=== PATIENT | female | born 1975 | race American Indian/Alaskan Native ===

== ENCOUNTER 2019-07-19 09:19 | Inpatient (IN) | payer OTHER ==
[2019-07-19] MEDS ORDERED: dexAMETHasone 20 MG/5 ML VIAL IM ONE (10:25)
[2019-07-19] MEDS ORDERED: ALBUTEROL 2.5 MG/3 ML NEBU IH ONE (10:25)
[2019-07-19] MEDS ORDERED: IPRATROPIUM 0.02% NEBU 2.5 ML IH ONE (10:25)
--- NOTE | 2019-07-19 10:42 | XRay Report ---
CHEST 2 VIEWS INDICATION / CLINICAL INFORMATION: Cough. Upper respiratory infection for 2 days. COMPARISON: 2 views of the chest from 03/02/2013. FINDINGS: SUPPORT DEVICES: None. HEART / MEDIASTINUM: No significant abnormality. LUNGS / PLEURA: No significant pulmonary or pleural abnormality. No pneumothorax. ADDITIONAL FINDINGS: No significant additional findings. IMPRESSION: No acute abnormality of the chest. Signer Name: Smith Martinez MD Signed: 07/19/2019 10:38 AM Workstation Name: [id number]
--- NOTE | 2019-07-19 10:54 | Emergency Department Report ---
Upper Respiratory HPI - HPI Chief Complaint: Upper Respiratory Infection Stated Complaint: KINSEY Time Seen by Provider: 07/19/19 09:42 Duration: 2 Days URI Symptoms: Rhinorrhea: Yes, Sore Throat: No, Ear Pain: No, Cough: Yes, Shortness of Breath: No, Sick Contacts: No, Unable to Take Fluids: No, Urine Output Abnormal: No, Listless Behavior: No Other History: This is a 43-year-old female nontoxic, well nourished in appearance, no acute signs of distress presents to the ED with c/o of productive cough, rhinorrhea, nasal congestion x2 days. Patient describes productive cough as yellow mucus production. Patient agrees to sick contact with cousin which has the flu. Patient denies any recent travels, long car, recent hospital stays. Patient denies any calf pain or calf tenderness. Patient denies any chest pain, short of breath, fever, chills, nausea, vomiting, hemoptysis, numbness, tingling, headache or stiff neck. Patient denies any allergies or significant past medical history. - Home Meds and Allergies Home Medications: Previous Rx's Medication Instructions Recorded Last Taken Type Ibuprofen [Motrin] 600 mg PO Q6H PRN #20 tablet 02/14/14 Unknown Rx Lidocaine/Prilocaine [Emla Cream] 1 applicatio TP Q6H PRN #30 g 02/14/14 Unknown Rx Triamcinolone 0.5% [Kenalog 0.5% 1 applic TP TID #1 tube 02/14/14 Unknown Rx Cream] Acetaminophen/Codeine [Tylenol #3] 1 tab PO TID PRN #15 tab 07/23/15 Unknown Rx methOCARBAMOL [Robaxin TAB] 500 mg PO BID #20 tab 07/23/15 Unknown Rx Allergies/Adverse Reactions: Allergies Allergy/AdvReac Type Severity Reaction Status Date / Time No Known Allergies Allergy Unverified 01/27/14 22:52 ED Review of Systems ROS: Stated complaint: KINSEY Other details as noted in HPI Constitutional: denies: chills, fever Eyes: denies: eye pain, eye discharge, vision change ENT: congestion. denies: ear pain, throat pain Respiratory: cough. denies: shortness of breath, wheezing Cardiovascular: denies: chest pain, palpitations Endocrine: no symptoms reported Gastrointestinal: denies: abdominal pain, nausea, diarrhea Genitourinary: denies: urgency, dysuria, discharge Musculoskeletal: denies: back pain, joint swelling, arthralgia Skin: denies: rash, lesions Neurological: denies: headache, weakness, paresthesias Psychiatric: denies: anxiety, depression Hematological/Lymphatic: denies: easy bleeding, easy bruising ED Past Medical Hx - Past Medical History Previous Medical History?: Yes Additional medical history: Childbirth x 2 - Surgical History Past Surgical History?: Yes Additional Surgical History: facial surgery, - Social History Smoking Status: Current Every Day Smoker Substance Use Type: Alcohol - Medications Home Medications: Home Medications Medication Instructions Recorded Confirmed Last Taken Type Ibuprofen [Motrin] 600 mg PO Q6H PRN #20 tablet 02/14/14 Unknown Rx Lidocaine/Prilocaine [Emla Cream] 1 applicatio TP Q6H PRN #30 g 02/14/14 Unknown Rx Triamcinolone 0.5% [Kenalog 0.5% 1 applic TP TID #1 tube 02/14/14 Unknown Rx Cream] Acetaminophen/Codeine [Tylenol #3] 1 tab PO TID PRN #15 tab 07/23/15 Unknown Rx methOCARBAMOL [Robaxin TAB] 500 mg PO BID #20 tab 07/23/15 Unknown Rx ED Bronchiolitis Physical Exam - Exam General: Vital signs noted. No distress. Alert and acting appropriately. Neurologic: Alert and oriented, no deficits. Musculoskeletal: Unremarkable. ED Physical Exam - General Limitations: No Limitations General appearance: alert, in no apparent distress - Head Head exam: Present: atraumatic, normocephalic - ENT ENT exam: Present: normal exam, normal orophraynx - Neck Neck exam: Present: normal inspection, full ROM. Absent: tenderness, meningismus, lymphadenopathy - Respiratory Respiratory exam: Present: normal lung sounds bilaterally, wheezes. Absent: respiratory distress, rales, rhonchi, stridor, chest wall tenderness, accessory muscle use, decreased breath sounds, prolonged expiratory - Cardiovascular Cardiovascular Exam: Present: regular rate, normal rhythm, normal heart sounds. Absent: bradycardia, tachycardia, irregular rhythm, systolic murmur, diastolic murmur, rubs, gallop - Extremities Exam Extremities exam: Present: normal inspection, full ROM - Back Exam Back exam: Present: normal inspection, full ROM - Neurological Exam Neurological exam: Present: alert, oriented X3, normal gait - Psychiatric Psychiatric exam: Present: normal affect, normal mood - Skin Skin exam: Present: warm, dry, intact, normal color. Absent: rash ED Course Vital Signs 07/19/19 09:23 Temperature 98.3 F Pulse Rate 79 Respiratory 18 Rate Blood Pressure 151/94 O2 Sat by Pulse 94 Oximetry - Reevaluation(s) Reevaluation #1: 07/19/19 10:54 Patient is speaking in full sentences with no signs of distress noted. Reevaluation #2: 07/19/19 12:47 Patient is currently still wheezing. I had patient walk and developed shortness of breath. I will start patient on magnesium with laboratory and blood gas orde red. Reevaluation #3: 07/19/19 14:02 Patient still has significant amount of wheezing and shortness of breath. Vital signs that showed that her pulse ox is a 92%. Will admit patient. - Consultations Consultation #1: 07/19/19 14:01 Patient has been consulted with Dr. Gaines about patient history, physical exam, and CXR and agrees for admission. ED Medical Decision Making - Lab Data Result diagrams: 07/19/19 12:53 07/19/19 12:53 - Medical Decision Making This is a 43-year-old female that presents with shortness of breath, wheezing, bronchitis. Patient is currently stable and was examined by me. Patient did receive multiple doses of medications but wheezing has not resolved and patient has of shortness of breath. Patient is admitted by Dr. Gaines. At time of admission, the patient does not seem toxic or ill in appearance. No acute signs of distress noted. Patient agrees to admission treatment plan of care. No further questions noted by the patient. Critical care attestation.: If time is entered above; I have spent that time in minutes in the direct care of this critically ill patient, excluding procedure time. ED Disposition Clinical Impression: Bronchitis, Wheezing, Shortness of breath Disposition: OP ADMIT IP TO THIS HOSP Is pt being admited?: Yes Condition: Stable
[2019-07-19] MEDS ORDERED: MAGNESIUM SULFATE 2 GM/50 ML BAG IV ONE (12:44)
[2019-07-19 13:07] LABS: Basophils # (Auto) 0.1 K/mm3 (0.0-0.1); Basophils % (Auto) 0.9 % (0.0-1.8); Eosinophils # (Auto) 0.4 K/mm3 (0.0-0.4); Eosinophils % (Auto) 3.1 % (0.0-4.3); Hematocrit 42.7 % (30.3-42.9); Hemoglobin 14.3 gm/dl (10.1-14.3); Lymphocytes # (Auto) 1.5 K/mm3 (1.2-5.4); Lymphocytes % (Auto) 10.6 % (13.4-35.0); Mean Corpuscular HGB Conc 34 % (30-34); Mean Corpuscular Volume 88 fl (79-97); Monocytes # (Auto) 0.3 K/mm3 (0.0-0.8); Monocytes % (Auto) 1.9 % (0.0-7.3); Platelet Count 279 K/mm3 (140-440); Red Blood Count 4.88 M/mm3 (3.65-5.03); Red Cell Distribution Width 13.5 % (13.2-15.2)
[2019-07-19 13:19] LABS: BUN/Creatinine Ratio 14; Blood Urea Nitrogen 11 mg/dL (7-17); Calcium 9.1 mg/dL (8.4-10.2); Hemolysis Index 12
[2019-07-19] MEDS ORDERED: ONDANSETRON 4 MG/2 ML INJ IV PRN (14:30)
[2019-07-19] MEDS ORDERED: oxyCODONE /ACETAMINOPHEN 5-325MG TAB PO PRN (14:30)
[2019-07-19] MEDS ORDERED: HYDROmorphone 1 MG/1 ML INJ IV PRN (14:30)
[2019-07-19] MEDS ORDERED: POTASSIUM CHLORIDE ER 20 MEQ TAB PO ONE (15:00)
[2019-07-19] MEDS ORDERED: ALBUTEROL 2.5 MG/3 ML NEBU IH PRN (16:00)
[2019-07-19] MEDS: methylPREDNISolone Sod Succinate 125 MG/2 ML INJ IV SCH ×2 (16:44→22:23)
--- NOTE | 2019-07-19 16:46 | History and Physical Report ---
History of Present Illness Date of examination: 07/19/19 Date of admission: 07/19/19 14:08 Chief complaint: Increasing SOB for 1 day History of present illness: 43-year-old -[place] female with history of COPD and emotional state COMES in for visit shortness of breath and wheezing for last 2 days. Cough and congestion for 2 days. No fever or chills. No recent trauma. No diaphoresis no chest pain. Cough productive of yellow sputum. No recent travel. Past Medical History Copd Surgical History Past Surgical History?: Yes Additional Surgical History: facial surgery, Social History Smoking Status: Current Every Day Smoker Substance Use Type: Alcohol occ, Family history positive forx1 Htn - Medications Home Medications: Home Medications Medication Instructions Recorded Confirmed Last Taken Type Ibuprofen [Motrin] 600 mg PO Q6H PRN #20 tablet 02/14/14 Unknown Rx Lidocaine/Prilocaine [Emla Cream] 1 applicatio TP Q6H PRN #30 g 02/14/14 Unknown Rx Triamcinolone 0.5% [Kenalog 0.5% 1 applic TP TID #1 tube 02/14/14 Unknown Rx Cream] Acetaminophen/Codeine [Tylenol #3] 1 tab PO TID PRN #15 tab 07/23/15 Unknown Rx methOCARBAMOL [Robaxin TAB] 500 mg PO BID #20 tab 07/23/15 Unknown Rx Review of Systems ROS: Stated complaint: KINSEY Other details as noted in HPI Constitutional: denies: chills, fever Eyes: denies: eye pain, eye discharge, vision change ENT: congestion. denies: ear pain, throat pain Respiratory: cough. denies: shortness of breath, wheezing present Cardiovascular: denies: chest pain, palpitations Endocrine: no symptoms reported Gastrointestinal: denies: abdominal pain, nausea, diarrhea Genitourinary: denies: urgency, dysuria, discharge Musculoskeletal: denies: back pain, joint swelling, arthralgia Skin: denies: rash, lesions Neurological: denies: headache, weakness, paresthesias Psychiatric: denies: anxiety, depression Hematological/Lymphatic: denies: easy bleeding, easy bruising Medications and Allergies Allergies Allergy/AdvReac Type Severity Reaction Status Date / Time No Known Allergies Allergy Unverified 01/27/14 22:52 Home Medications Medication Instructions Recorded Confirmed Last Taken Type Ibuprofen [Motrin] 600 mg PO Q6H PRN #20 tablet 02/14/14 Unknown Rx Lidocaine/Prilocaine [Emla Cream] 1 applicatio TP Q6H PRN #30 g 02/14/14 Unknown Rx Triamcinolone 0.5% [Kenalog 0.5% 1 applic TP TID #1 tube 02/14/14 Unknown Rx Cream] Acetaminophen/Codeine [Tylenol #3] 1 tab PO TID PRN #15 tab 07/23/15 Unknown Rx methOCARBAMOL [Robaxin TAB] 500 mg PO BID #20 tab 07/23/15 Unknown Rx Active Meds: Active Medications Acetaminophen (Tylenol) 650 mg PO Q4H PRN PRN Reason: Pain MILD(1-3)/Fever >100.5/MASSEY Albuterol (Proventil) 2.5 mg IH Q4HRT PRN PRN Reason: Shortness Of Breath Albuterol/Ipratropium (Duoneb *Not For Prn Use*) 1 ampul IH QIDRT IBRAHIMA Hydromorphone HCl (Dilaudid) 0.5 mg IV Q3H PRN PRN Reason: Pain , Severe (7-10) Levofloxacin/Dextrose (Levaquin 750mg/150ml) 750 mg in 150 mls @ 100 mls/hr IV Q24HR IBRAHIMA; Protocol Methylprednisolone Sodium Succinate (Solu-Medrol) 80 mg IV Q8HR IBRAHIMA Ondansetron HCl (Zofran) 4 mg IV Q8H PRN PRN Reason: Nausea And Vomiting Oxycodone/Acetaminophen (Percocet 5/325) 1 tab PO Q6H PRN PRN Reason: Pain, Moderate (4-6) Sodium Chloride (Sodium Chloride Flush Syringe 10 Ml) 10 ml IV BID IBRAHIMA Sodium Chloride (Sodium Chloride Flush Syringe 10 Ml) 10 ml IV PRN PRN PRN Reason: LINE FLUSH Exam - Constitutional Vitals: Temp Pulse Resp BP Pulse Ox 98.3 F 98 H 16 139/84 98 07/19/19 09:23 07/19/19 15:20 07/19/19 15:20 07/19/19 15:20 07/19/19 15:20 General appearance: Present: mild distress, well-nourished - EENT Eyes: Present: PERRL ENT: hearing intact, clear oral mucosa - Neck Neck: Present: supple, normal ROM - Respiratory Respiratory effort: normal Respiratory: bilateral: CTA, rhonchi, wheezing - Cardiovascular Heart rate: 80 Rhythm: regular (80) Heart Sounds: Present: S1 & S2. Absent: rub, click - Extremities Extremities: no ischemia, pulses intact, pulses symmetrical, No edema Peripheral Pulses: within normal limits - Abdominal General gastrointestinal: Present: soft, non-tender, non-distended, normal bowel sounds Female genitourinary: Present: normal - Rectal Rectal Exam: deferred - Integumentary Integumentary: Present: clear, warm, dry - Musculoskeletal Musculoskeletal: gait normal, strength equal bilaterally - Psychiatric Psychiatric: appropriate mood/affect, intact judgment & insight - Neurologic Neurologic: CNII-XII intact, moves all extremities - Allied Health Allied health notes reviewed: nursing, case management Results - Labs CBC & Chem 7: 07/19/19 12:53 07/19/19 12:53 Labs: Laboratory Last Values WBC 14.2 K/mm3 (4.5-11.0) H 07/19/19 12:53 RBC 4.88 M/mm3 (3.65-5.03) 07/19/19 12:53 Hgb 14.3 gm/dl (10.1-14.3) 07/19/19 12:53 Hct 42.7 % (30.3-42.9) 07/19/19 12:53 MCV 88 fl (79-97) 07/19/19 12:53 MCH 29 pg (28-32) 07/19/19 12:53 MCHC 34 % (30-34) 07/19/19 12:53 RDW 13.5 % (13.2-15.2) 07/19/19 12:53 Plt Count 279 K/mm3 (140-440) 07/19/19 12:53 Lymph % (Auto) 10.6 % (13.4-35.0) L 07/19/19 12:53 [place] % (Auto) 1.9 % (0.0-7.3) 07/19/19 12:53 Eos % (Auto) 3.1 % (0.0-4.3) 07/19/19 12:53 Baso % (Auto) 0.9 % (0.0-1.8) 07/19/19 12:53 Lymph # 1.5 K/mm3 (1.2-5.4) 07/19/19 12:53 [place] # 0.3 K/mm3 (0.0-0.8) 07/19/19 12:53 Eos # 0.4 K/mm3 (0.0-0.4) 07/19/19 12:53 Baso # 0.1 K/mm3 (0.0-0.1) 07/19/19 12:53 Seg Neutrophils % 83.5 % (40.0-70.0) H 07/19/19 12:53 Seg Neutrophils # 11.9 K/mm3 (1.8-7.7) H 07/19/19 12:53 Sodium 140 mmol/L (137-145) 07/19/19 12:53 Potassium 3.5 mmol/L (3.6-5.0) L 07/19/19 12:53 Chloride 103.1 mmol/L (98-107) 07/19/19 12:53 Carbon Dioxide 24 mmol/L (22-30) 07/19/19 12:53 16 mmol/L 07/19/19 12:53 BUN 11 mg/dL (7-17) 07/19/19 12:53 0.8 mg/dL (0.7-1.2) 07/19/19 12:53 Estimated GFR > 60 ml/min 07/19/19 12:53 14 % 07/19/19 12:53 Glucose 122 mg/dL (65-100) H 07/19/19 12:53 Calcium 9.1 mg/dL (8.4-10.2) 07/19/19 12:53 Short CBC 07/19/19 Range/Units 12:53 WBC 14.2 H (4.5-11.0) K/mm3 Hgb 14.3 (10.1-14.3) gm/dl Hct 42.7 (30.3-42.9) % Plt Count 279 (140-440) K/mm3 BMP 07/19/19 12:53 Sodium 140 Potassium 3.5 L Chloride 103.1 Carbon Dioxide 24 BUN 11 Creatinine 0.8 Glucose 122 H Calcium 9.1 - Imaging and Cardiology EKG: report reviewed Assessment and Plan Advance Directives: Yes (Full code) VTE prophylaxis?: Chemical Plan of care discussed with patient/family: Yes - Patient Problems (1) SIRS (systemic inflammatory response syndrome) Current Visit: Yes Status: Acute Plan to address problem: Patient has a high white count Clinical picture consistent with systemic inflammatory response syndrome (2) Acute respiratory failure with hypoxia Current Visit: Yes Status: Acute Plan to address problem: Patient initiated on oxygen, nebulizer treatments, IV Solu-Medrol and IV Levaquin (3) COPD exacerbation Current Visit: Yes Status: Acute Plan to address problem: Patient started on nebulizer treatments and IV Solu-Medrol and IV Levaquin BiPAP if necessary Intubation (4) Hypokalemia Current Visit: Yes Status: Acute Plan to address problem: mild Supplemented (5) Morbid obesity Current Visit: Yes Status: Chronic Plan to address problem: Counselled (6) Nicotine dependence Current Visit: Yes Status: Chronic Qualifiers: Nicotine product type: other Substance use status: uncomplicated Qualified Code(s): F17.290 - Nicotine dependence, other tobacco product, uncomplicated Plan to address problem: Smokes cigars Counsellled Nicoderm patch initiated (7) DVT prophylaxis Current Visit: Yes Status: Acute Plan to address problem: On Lovenox and GI prophylaxis
[2019-07-19] MEDS: IPRATROPIUM/ALBUTEROL SULFATE 3 ML AMPUL.NEB IH SCH ×2 (17:12→19:38)
[2019-07-19] MEDS: ACETAMINOPHEN 325 MG TAB PO PRN (19:01)
[2019-07-19] MEDS: NICOTINE 14 MG/24 HR PATCH TD SCH (19:02)
[2019-07-19] MEDS ORDERED: ENOXAPARIN 40 MG/0.4 ML INJ SUB-Q SCH (22:00)
[2019-07-20] MEDS: methylPREDNISolone Sod Succinate 125 MG/2 ML INJ IV SCH ×2 (06:00→13:55)
[2019-07-20] MEDS: ACETAMINOPHEN 325 MG TAB PO PRN ×2 (06:30→11:52)
[2019-07-20 06:46] LABS: Hematocrit 42.6 % (30.3-42.9); Hemoglobin 14.5 gm/dl (10.1-14.3); Mean Corpuscular HGB Conc 34 % (30-34); Mean Corpuscular Volume 88 fl (79-97); Platelet Count 290 K/mm3 (140-440); Red Blood Count 4.86 M/mm3 (3.65-5.03); Red Cell Distribution Width 13.5 % (13.2-15.2)
[2019-07-20 06:49] LABS: Alanine Aminotransferase 16 units/L (7-56); Albumin 4.3 g/dL (3.9-5); BUN/Creatinine Ratio 16; Blood Urea Nitrogen 11 mg/dL (7-17); Calcium 9.7 mg/dL (8.4-10.2); Hemolysis Index 2
[2019-07-20] MEDS: IPRATROPIUM/ALBUTEROL SULFATE 3 ML AMPUL.NEB IH SCH ×3 (07:42→16:54)
[2019-07-20] MEDS: NICOTINE 14 MG/24 HR PATCH TD SCH (10:45)
--- NOTE | 2019-07-20 11:08 | Progress Note ---
Assessment and Plan Assessment and plan: (1) SIRS (systemic inflammatory response syndrome) Current Visit: Yes Status: Acute Plan to address problem: Patient has a high white count Clinical picture consistent with systemic inflammatory response syndrome (2) Acute respiratory failure with hypoxia Current Visit: Yes Status: Acute Plan to address problem: Patient initiated on oxygen, nebulizer treatments, IV Solu-Medrol and IV Levaquin (3) COPD exacerbation Current Visit: Yes Status: Acute Plan to address problem: Patient started on nebulizer treatments and IV Solu-Medrol and IV Levaquin BiPAP if necessary Intubation (4) Hypokalemia Current Visit: Yes Status: Acute Plan to address problem: mild Supplemented (5) Morbid obesity Current Visit: Yes Status: Chronic Plan to address problem: Counselled (6) Nicotine dependence Current Visit: Yes Status: Chronic Qualifiers: Nicotine product type: other Substance use status: uncomplicated Qualified Code(s): F17.290 - Nicotine dependence, other tobacco product, uncomplicated Plan to address problem: Smokes cigars Counsellled Nicoderm patch initiated (7) DVT prophylaxis Current Visit: Yes Status: Acute Plan to address problem: On Lovenox and GI prophylaxis Hospitalist Physical - Constitutional Vitals: Temp Pulse Resp BP Pulse Ox 98.4 F 87 19 150/86 97 07/20/19 05:41 07/20/19 07:42 07/20/19 07:42 07/20/19 05:41 07/20/19 07:43 General appearance: Present: mild distress, well-nourished Results - Labs CBC & Chem 7: 07/20/19 Unknown 07/20/19 04:00 Labs: Laboratory Last Values WBC 13.3 K/mm3 (4.5-11.0) H 07/20/19 Unknown RBC 4.86 M/mm3 (3.65-5.03) 07/20/19 Unknown Hgb 14.5 gm/dl (10.1-14.3) H 07/20/19 Unknown Hct 42.6 % (30.3-42.9) 07/20/19 Unknown MCV 88 fl (79-97) 07/20/19 Unknown MCH 30 pg (28-32) 07/20/19 Unknown MCHC 34 % (30-34) 07/20/19 Unknown RDW 13.5 % (13.2-15.2) 07/20/19 Unknown Plt Count 290 K/mm3 (140-440) 07/20/19 Unknown Lymph % (Auto) 10.6 % (13.4-35.0) L 07/19/19 12:53 [place] % (Auto) 1.9 % (0.0-7.3) 07/19/19 12:53 Eos % (Auto) 3.1 % (0.0-4.3) 07/19/19 12:53 Baso % (Auto) 0.9 % (0.0-1.8) 07/19/19 12:53 Lymph # 1.5 K/mm3 (1.2-5.4) 07/19/19 12:53 [place] # 0.3 K/mm3 (0.0-0.8) 07/19/19 12:53 Eos # 0.4 K/mm3 (0.0-0.4) 07/19/19 12:53 Baso # 0.1 K/mm3 (0.0-0.1) 07/19/19 12:53 Seg Neutrophils % Hothouse Worker 07/20/19 Unknown Seg Neutrophils # 11.9 K/mm3 (1.8-7.7) H 07/19/19 12:53 Sodium 139 mmol/L (137-145) 07/20/19 04:00 Potassium 4.6 mmol/L (3.6-5.0) D 07/20/19 04:00 Chloride 101.1 mmol/L (98-107) 07/20/19 04:00 Carbon Dioxide 22 mmol/L (22-30) 07/20/19 04:00 Anion Gap 21 mmol/L 07/20/19 04:00 BUN 11 mg/dL (7-17) 07/20/19 04:00 Creatinine 0.7 mg/dL (0.7-1.2) 07/20/19 04:00 Estimated GFR > 60 ml/min 07/20/19 04:00 BUN/Creatinine Ratio 16 % 07/20/19 04:00 Glucose 141 mg/dL (65-100) H 07/20/19 04:00 Hemoglobin A1c 5.5 % (4-6) 07/19/19 16:05 Calcium 9.7 mg/dL (8.4-10.2) 07/20/19 04:00 Total Bilirubin 0.30 mg/dL (0.1-1.2) 07/20/19 04:00 AST 16 units/L (5-40) 07/20/19 04:00 ALT 16 units/L (7-56) 07/20/19 04:00 Alkaline Phosphatase 70 units/L (35-129) 07/20/19 04:00 Total Protein 8.4 g/dL (6.3-8.2) H 07/20/19 04:00 Albumin 4.3 g/dL (3.9-5) 07/20/19 04:00 Albumin/Globulin Ratio 1.0 % 07/20/19 04:00 Active Medications - Current Medications Current Medications: Generic Name Dose Route Start Last Admin Trade Name Freq PRN Reason Stop Dose Admin Acetaminophen 650 mg 07/19/19 14:30 07/20/19 06:30 Tylenol PO 650 mg Q4H PRN Administration Pain MILD(1-3)/Fever >100.5/MASSEY Albuterol 2.5 mg 07/19/19 16:00 Proventil IH Q4HRT PRN Shortness Of Breath Albuterol/Ipratropium 1 ampul 07/19/19 16:00 07/20/19 07:42 Duoneb *Not For Prn Use* IH 1 ampul QIDRT IBRAHIMA Administration Enoxaparin Sodium 40 mg 07/19/19 22:00 07/19/19 22:23 Lovenox SUB-Q 40 mg QDAY@2200 IBRAHIMA Administration Hydromorphone HCl 0.5 mg 07/19/19 14:30 Dilaudid IV Q3H PRN Pain , Severe (7-10) Levofloxacin/Dextrose 750 mg in 150 mls @ 100 mls/hr 07/19/19 15:00 07/20/19 10:47 Levaquin 750mg/150ml IV 100 mls/hr Q24HR IBRAHIMA Administration Protocol Methocarbamol 500 mg 07/19/19 22:00 07/20/19 10:45 Robaxin PO 500 mg BID IBRAHIMA Administration Methylprednisolone Sodium Succinate 80 mg 07/19/19 15:00 07/20/19 06:00 Solu-Medrol IV 80 mg Q8HR IBRAHIMA Administration Nicotine 14 mg 07/19/19 18:00 07/20/19 10:45 Habitrol TD 14 mg QDAY IBRAHIMA Administration Ondansetron HCl 4 mg 07/19/19 14:30 Zofran IV Q8H PRN Nausea And Vomiting Oxycodone/Acetaminophen 1 tab 07/19/19 14:30 Percocet 5/325 PO Q6H PRN Pain, Moderate (4-6) Sodium Chloride 10 ml 07/19/19 15:00 07/20/19 10:49 Sodium Chloride Flush Syringe 10 Ml IV 10 ml BID IBRAHIMA Administration Sodium Chloride 10 ml 07/19/19 15:00 Sodium Chloride Flush Syringe 10 Ml IV PRN PRN LINE FLUSH
[2019-07-20 11:28] LABS: Band Neutrophils # (Manual) 0.1 K/mm3; Basophils % (Manual) 0 % (0.0-1.8); Eosinophils % (Manual) 0 % (0.0-4.3); Monocytes % (Manual) 0 % (0.0-7.3); Total Cells Counted 100
[2019-07-20 11:31] LABS: RBC Morphology Normal
[2019-07-20 11:38] VITALS: BP 134/89
[2019-07-20 11:51] LABS: Platelet Estimate Consistent w Auto
--- NOTE | 2019-07-20 15:05 | Discharge Summary ---
Providers - Providers Date of Admission: 07/19/19 14:08 Attending physician: CARLA CASTRO MD Primary care physician: ASSISTANT KITCHEN MANAGER Hospitalization Condition: Stable Hospital course: 43-year-old woman with history of tobacco abuse who had been exposed to sick contacts at work. She works at a hospice. She had cold and congestion for 2 days at though she is having wheezing shortness of breath and productive cough. She was diagnosed with acute bronchitis, she was treated with steroids and breathing treatments. Patient clinically improved and was sent on steroid taper and inhalers. Patient is recommended to follow-up with her PCP as an outpatient. If her symptoms do not completely resolve she is recommended to follow-up to get pulmonary function tests Tobacco abuse/dependence Smoking cessation counseling performed for 10 minutes, nicotine patches when necessary Diagnosis Acute bronchitis Tobacco abuse/dependence Disposition: - TO HOME OR SELFCARE Time spent for discharge: 33 mins Core Measure Documentation - Palliative Care Palliative Care/ Comfort Measures: Not Applicable - Core Measures Any of the following diagnoses?: none Exam - Constitutional Vitals: Temp Pulse Resp BP Pulse Ox 98.7 F 90 19 134/89 96 07/20/19 11:37 07/20/19 13:10 07/20/19 13:10 07/20/19 11:37 07/20/19 11:37 General appearance: Present: no acute distress, well-nourished - EENT Eyes: Present: PERRL ENT: hearing intact, clear oral mucosa - Neck Neck: Present: supple, normal ROM - Respiratory Respiratory effort: normal Respiratory: bilateral: diminished - Cardiovascular Heart Sounds: Present: S1 & S2. Absent: rub, click - Extremities Extremities: pulses symmetrical, No edema Peripheral Pulses: within normal limits - Abdominal General gastrointestinal: Present: soft, non-tender, non-distended, normal bowel sounds Female genitourinary: Present: normal - Integumentary Integumentary: Present: clear, warm, dry - Musculoskeletal Musculoskeletal: gait normal, strength equal bilaterally - Psychiatric Psychiatric: appropriate mood/affect, intact judgment & insight - Neurologic Neurologic: CNII-XII intact, moves all extremities Plan Follow up with: PRIMARY CARE, [Primary Care Provider] - 7 Days Prescriptions: Ipratropium/Albuterol Sulfate [Combivent Respimat] 1 spray IH QID #1 aer.w.[email or web address] Prednisone [predniSONE 5 mg (6-Day Pack, 21 Tabs)] 5 mg PO .TAPER #1 tab.ds.pk guaiFENesin [Robitussin] 100 mg PO Q6H PRN #1 bottle PRN Reason: Cough Benzonatate [Tessalon Perles] 100 mg PO Q8HR PRN #20 capsule PRN Reason: Cough
== END 2019-07-20 19:00 | disposition home or self-care (01) | DRG 189 ==
LOC: ED 09:19 → 3A 14:08
PROVIDERS: ADMIT Internal Medicine; ATTEND Internal Medicine
DX: J96.01 Acute respiratory failure with hypoxia (principal); R65.10 Systemic inflammatory response syndrome (SIRS) of non-infectious origin without acute organ dysfunction; J44.1 Chronic obstructive pulmonary disease with (acute) exacerbation; Z68.42 Body mass index [BMI] 45.0-49.9, adult; F17.210 Nicotine dependence, cigarettes, uncomplicated; E87.6 Hypokalemia; E66.01 Morbid (severe) obesity due to excess calories
CPT/HCPCS: 36415; 71046; 80048; 80053; 83036; 85007; 85025; 94640; 94760; 96374; 99406; G0378; J1100; J1650; J1956; J2405; J2930; J3475

== ENCOUNTER 2021-05-19 21:25 | Emergency (ER) | payer OTHER ==
[2021-05-20] MEDS ORDERED: ACETAMINOPHEN 500 MG TAB PO ONE (05:07)
[2021-05-20] MEDS ORDERED: amLODIPine 5 MG TAB PO ONE (05:07)
[2021-05-20 05:09] VITALS: BP 160/93
--- NOTE | 2021-05-20 05:13 | Emergency Department Report ---
ED General Adult HPI - General Chief complaint: High BP Stated complaint: HEADACHE/FATIGUE Source: patient Mode of arrival: Ambulatory Limitations: No Limitations - History of Present Illness Initial comments: Patient is a 45-year-old -[place] female with a history of morbid obesity presents to the ED with complaint of acute onset persistently elevated blood pressure for the last 1 month, with occasional intermittent right temporal mild headache. Patient states that she has also undergone a lot of family stressors including deaths in the family. Patient denies dizziness, syncope, chest pain, nausea, vomiting, change in vision, palpitations, diaphoresis, lower extremity. MD Complaint: Elevated blood pressure -: Sudden, month(s) (1) Location: head Radiation: non-radiation Severity scale (0 -10): 0 Improves with: none Worsens with: none Associated Symptoms: denies other symptoms. denies: confusion, chest pain, cough, diaphoresis, fever/chills, headaches, malaise, nausea/vomiting, seizure, shortness of breath, syncope, weakness Treatments Prior to Arrival: none - Related Data Previous Rx's Medication Instructions Recorded Last Taken Type Ibuprofen [Motrin 600 MG tab] 600 mg PO Q6H PRN #20 tablet 02/14/14 Unknown Rx Lidocaine/Prilocaine [Emla Cream] 1 applicatio TP Q6H PRN #30 g 02/14/14 Unknown Rx Triamcinolone 0.5% [Kenalog 0.5% 1 applic TP TID #1 tube 02/14/14 Unknown Rx CREAM] methOCARBAMOL [Robaxin TAB] 500 mg PO BID #20 tab 07/23/15 Unknown Rx Benzonatate [Tessalon Perles] 100 mg PO Q8HR PRN #20 capsule 07/20/19 Unknown Rx Ipratropium/Albuterol Sulfate 1 spray IH QID #1 aer.w.adap 07/20/19 Unknown Rx [Combivent Respimat] Prednisone [predniSONE 5 mg (6-Day 5 mg PO .TAPER #1 tab.ds.pk 07/20/19 Unknown Rx Pack, 21 Tabs)] guaiFENesin [Robitussin] 100 mg PO Q6H PRN #1 bottle 07/20/19 Unknown Rx amLODIPine 10 mg PO DAILY #30 tab 05/20/21 Unknown Rx Allergies Allergy/AdvReac Type Severity Reaction Status Date / Time No Known Allergies Allergy Unverified 01/27/14 22:52 ED Review of Systems ROS: Stated complaint: HEADACHE/FATIGUE Other details as noted in HPI Constitutional: other (elevated blood pressure). denies: chills, fever Eyes: denies: eye pain, eye discharge, vision change ENT: denies: ear pain, throat pain Respiratory: denies: cough, shortness of breath, wheezing Cardiovascular: denies: chest pain, palpitations Endocrine: no symptoms reported Gastrointestinal: denies: abdominal pain, nausea, vomiting, diarrhea Genitourinary: denies: urgency, dysuria, discharge Musculoskeletal: denies: back pain, joint swelling, arthralgia Skin: denies: rash, lesions Neurological: denies: headache, weakness, paresthesias Psychiatric: denies: anxiety, depression Hematological/Lymphatic: denies: easy bleeding, easy bruising ED Past Medical Hx - Past Medical History Previous Medical History?: Yes Additional medical history: Childbirth x 2 - Surgical History Past Surgical History?: Yes Additional Surgical History: facial surgery, - Social History Smoking Status: Current Some Day Smoker - Medications Home Medications: Home Medications Medication Instructions Recorded Confirmed Last Taken Type Ibuprofen [Motrin 600 MG tab] 600 mg PO Q6H PRN #20 tablet 02/14/14 Unknown Rx Lidocaine/Prilocaine [Emla Cream] 1 applicatio TP Q6H PRN #30 g 02/14/14 Unknown Rx Triamcinolone 0.5% [Kenalog 0.5% 1 applic TP TID #1 tube 02/14/14 Unknown Rx CREAM] methOCARBAMOL [Robaxin TAB] 500 mg PO BID #20 tab 07/23/15 Unknown Rx Benzonatate [Tessalon Perles] 100 mg PO Q8HR PRN #20 capsule 07/20/19 Unknown Rx Ipratropium/Albuterol Sulfate 1 spray IH QID #1 aer.w.adap 07/20/19 Unknown Rx [Combivent Respimat] Prednisone [predniSONE 5 mg (6-Day 5 mg PO .TAPER #1 tab.ds.pk 07/20/19 Unknown Rx Pack, 21 Tabs)] guaiFENesin [Robitussin] 100 mg PO Q6H PRN #1 bottle 07/20/19 Unknown Rx amLODIPine 10 mg PO DAILY #30 tab 07/31/21 Unknown Rx ED Physical Exam - General Limitations: No Limitations General appearance: alert, in no apparent distress - Head Head exam: Present: atraumatic, normocephalic, normal inspection - Eye Eye exam: Present: normal appearance, PERRL, EOMI Pupils: Present: normal accommodation - ENT ENT exam: Present: normal exam, normal orophraynx, mucous membranes moist, TM's normal bilaterally, normal external ear exam - Neck Neck exam: Present: normal inspection, full ROM - Respiratory Respiratory exam: Present: normal lung sounds bilaterally. Absent: respiratory distress, wheezes, rales, rhonchi, chest wall tenderness, accessory muscle use - Cardiovascular Cardiovascular Exam: Present: regular rate, normal rhythm, normal heart sounds. Absent: systolic murmur, diastolic murmur, rubs, gallop - GI/Abdominal GI/Abdominal exam: Present: soft, normal bowel sounds. Absent: tenderness, guarding, rebound, hyperactive bowel sounds, hypoactive bowel sounds, organomegaly - Extremities Exam Extremities exam: Present: normal inspection, full ROM, normal capillary refill - Back Exam Back exam: Present: normal inspection, full ROM. Absent: tenderness, CVA tenderness (R), CVA tenderness (L), muscle spasm, paraspinal tenderness, vertebral tenderness - Neurological Exam Neurological exam: Present: alert, oriented X3, CN II-XII intact, normal gait, reflexes normal - Psychiatric Psychiatric exam: Present: normal affect, normal mood - Skin Skin exam: Present: warm, dry, intact, normal color. Absent: rash ED Course Vital Signs 05/19/21 05/20/21 22:07 05:08 Temperature 98.2 F Pulse Rate 81 79 Respiratory 16 Rate Blood Pressure 172/93 160/93 [Left] O2 Sat by Pulse 99 100 Oximetry ED Medical Decision Making - Medical Decision Making This is a 45-year-old -[place] female with a history of morbid obesity presents to the ED with complaint of acute onset persistently elevated blood pressure for the last 1 month, with occasional intermittent right temporal mild headache. Patient states that she has also undergone a lot of family stressors including deaths in the family. In the ED, patient is alert and oriented x3 and is not in any distress. Vital signs showed significantly elevated blood pressure. Patient was given initial oral blood pressure medications. Patient was thereafter discharged home on medications and advised to follow-up with her primary care physician in 7 to 10 days for reevaluation or return to the ED immediately if symptoms get worse. - Differential Diagnosis Uncontrolled HTN; Anxiety; Tension headache Critical care attestation.: If time is entered above; I have spent that time in minutes in the direct care of this critically ill patient, excluding procedure time. ED Disposition Clinical Impression: Uncontrolled stage 2 hypertension Disposition: TO HOME OR SELFCARE Is pt being admited?: No Does the pt Need Aspirin: No Condition: Stable Instructions: Hypertension (ED), Hypertension, Adult, [id number] Additional Instructions: Take medication with food, drink plenty of fluids and follow-up your primary care physician in 7 to 10 days for reevaluation. Return to the ED immediately if symptoms get worse. Prescriptions: amLODIPine 10 mg PO DAILY #30 tab Referrals: [facility] [Provider Group] - 3-5 Days Time of Disposition: 05:11 Print Language: [place]
== END 2021-05-20 06:56 | disposition home or self-care (01) ==
LOC: ED 21:25
DX: I10 Essential (primary) hypertension (principal); F17.200 Nicotine dependence, unspecified, uncomplicated
CPT/HCPCS: 99282